=== PATIENT | female | born 1980 | race Caucasian/White ===

== ENCOUNTER 2017-04-18 13:17 | Emergency (ER) | payer MEDICARE, OTHER ==
[~2017-04-18] VITALS: Ht 170.2 cm; Wt 59.0 kg
--- OUTSIDE RECORDS SUMMARY | 2017-04-18 13:26 | XMS REPORT | Continuity of Care Document ---
Demographics Preferred Language Unknown Marital Status Unknown Jainism Affiliation Unknown Race Unknown Ethnic Group Unknown Author Author [facility] Address Unknown Phone Unavailable Allergies Medications Problems Date Dx Coded Attending Type Code Diagnosis Diagnosed By 08/21/2008 599.0 URINARY TRACT INFECTION 08/21/2008 785.0 TACHYCARDIA 08/21/2008 V25.9 Gynecologic Services Contraceptive Management 09/10/2008 V72.31 ROUTINE GYNECOLOGICAL EXAMINATION 03/03/2009 V25.49 SURVEILLANCE OF OTHER CONTRACEPTIVE METHOD 05/12/2009 296.32 MAJOR DEPRESSION RECURRENT MODERATE 05/12/2009 301.83 PD BORDERLINE 05/12/2009 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 05/27/2009 296.90 EPISODIC MOOD DISORDERS 06/02/2009 300.00 anxiety 06/11/2009 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 Visit Date/Time Discharge Status Pt. Type Provider Facility Loc./Unit Complaint [id number] 03/30/2011 14:25:00 03/30/2011 23: 59:59 CLS Outpatient
[2017-04-18] MEDS ORDERED: DEXT10TA9 PO (14:23)
[2017-04-18] MEDS ORDERED: MAGNESIUM PO (14:23)
[2017-04-18] MEDS ORDERED: TRAZ-28 PO (14:23)
[2017-04-18] MEDS ORDERED: RT-ALBUINH IH (14:23)
[2017-04-18] MEDS ORDERED: FLUO20CA42 PO (14:23)
[2017-04-18] MEDS ORDERED: MULTIVITAMIN GUMMIES PO (14:23)
--- NOTE | 2017-04-18 14:27 | ED GU-Female ---
General Chief Complaint: -Female Stated Complaint: HEAVY IRREGULAR VAG BLEEDING/NAUSEA Nursing Triage Note: C/O VAG BLEEDING FOR @ 3 WEEKS. SPOTTING ON 2 OR MORE PADS/DAY. STATES COLOR IS BRIGHT RED TO DARK. STATES MENSTRUAL CYCLE WAS END OF FEBRUARY. TOOK A TEST ET STATES IT WAS NEGATIVE. HAS HX OF MISCARRIAGE. Nursing Sepsis Screen: No Definite Risk Source: patient Exam Limitations: no limitations History of Present Illness Time seen by provider: 14:26 Allergies and Home Medications Allergies Coded Allergies: propranolol (Unverified Adverse Reaction, Unknown, 04/18/17) Pt. states it interacts with their allergy medication. Home Medications Albuterol Sulfate 1 Puff Puff, 2 PUFF IH Q4H, (Reported) 1 PUFF = 90 MCG Dextroamphetamine/Amphetamine 10 Mg Tablet, 10 MG PO BID, (Reported) Fluoxetine HCl 20 Mg Capsule, 20 MG PO DAILY, (Reported) Trazodone HCl 50 Mg Tablet, 25 MG PO HS, (Reported) [Magnesium] , 1 TAB PO DAILY, (Reported) [Multivitamin Gummies] , 2 TAB.CHEW PO DAILY, (Reported) Past Knxkixe-Bbhudh-Ubcgyg Hx Patient Social History Alcohol Use: Regular Use Alcohol Beverage of Choice: Beer, Wine Recreational Drug Use: Yes (MARIJUANA) Smoking Status: Current Everyday Smoker Type Used: Cigarettes Recent Foreign Travel: No Contact w/Someone Who Travel: No Recent Infectious Disease Expo: No Recent Hopitalizations: No Seasonal Allergies Seasonal Allergies: No Surgeries History of Surgeries: Yes (LASER SURGERY TO CERVIX) Respiratory History of Respiratory Disorde: Yes Respiratory Disorders: Asthma Cardiovascular History of Cardiac Disorders: Yes Cardiac Disorders: Irregular Heartbeat Neurological History of Neurological Disord: No Reproductive System : No (SEE TRIAGE NOTE) Last Menstrual Period: Mar 20, 2017 Genitourinary History of Genitourinary Disor: No Gastrointestinal History of Gastrointestinal Di: No Musculoskeletal History of Musculoskeletal Dis: No Endocrine History of Endocrine Disorders: No HEENT History of HEENT Disorders: No Cancer History of Cancer: No Psychosocial History of Psychiatric Problem: Yes Behavioral Health Disorders: ADD/ADHD, Anxiety, Bipolar, Depression Integumentary History of Skin or Integumenta: Yes Skin/Integumentary Disorders: Eczema Blood Transfusions History of Blood Disorders: No Adverse Reaction to a Blood Tr: No Physical Exam Vital Signs Vital Sign - Last 12Hours 04/18/17 14:01 Temp 97.4 Pulse 82 Resp 18 B/P (MAP) 143/98 Pulse Ox 100 O2 Delivery Nasal Cannula Capillary Refill : Less Than 3 Seconds Progress/Results/Core Measures Results/Orders Lab Results Laboratory Tests Test 04/18/17 15:05 04/18/17 15:06 04/18/17 15:08 04/18/17 16:55 Range/Units Sodium Level 138 135-145 MMOL/L Potassium Level 3.9 3.6-5.0 MMOL/L Chloride Level 103 98-107 MMOL/L Carbon Dioxide Level 28 21-32 MMOL/L Anion Gap 7 5-14 MMOL/L Blood Urea Nitrogen 11 7-18 MG/DL Creatinine 1.04 0.60-1.30 MG/DL Estimat Glomerular Filtration Rate 59 BUN/Creatinine Ratio 11 Glucose Level 97 70-105 MG/DL Calcium Level 9.6 8.5-10.1 MG/DL Total Bilirubin 0.4 0.1-1.0 MG/DL Aspartate Amino Transf (AST/SGOT) 22 5-34 U/L Alanine Aminotransferase (ALT/SGPT) 15 0-55 U/L Alkaline Phosphatase 61 40-136 U/L Total Protein 7.0 6.4-8.2 GM/DL Albumin 4.3 3.2-4.5 GM/DL Urine Color YELLOW Urine Clarity SLIGHTLY CLOUDY Urine pH 8 5-9 Urine Specific [place] 1.015 L 1.016-1.022 Urine Protein NEGATIVE NEGATIVE Urine Glucose (UA) NEGATIVE NEGATIVE Urine Ketones NEGATIVE NEGATIVE Urine Nitrite NEGATIVE NEGATIVE Urine Bilirubin NEGATIVE NEGATIVE Urine Urobilinogen NORMAL NORMAL MG/DL Urine Leukocyte Esterase 1+ H NEGATIVE Urine RBC (Auto) 5+ H NEGATIVE Urine RBC 0-2 /HPF Urine WBC 2-5 /HPF Urine Squamous Epithelial Cells >50 H /HPF Urine Renal Epithelial Cells NONE /HPF Urine Crystals NONE /LPF Urine Bacteria NEGATIVE /HPF Urine Casts NONE /LPF Urine Mucus NEGATIVE /LPF Urine Culture Indicated NO White Blood Count 7.7 4.3-11.0 10^3/uL Red Blood Count 4.30 L 4.35-5.85 10^6/uL Hemoglobin 13.7 11.5-16.0 G/DL Hematocrit 40 35-52 % Mean Corpuscular Volume 92 80-99 FL Mean Corpuscular Hemoglobin 32 25-34 PG Mean Corpuscular Hemoglobin Concent 35 32-36 G/DL Red Cell Distribution Width 12.6 10.0-14.5 % Platelet Count 230 130-400 10^3/uL Mean Platelet Volume 10.7 H 7.4-10.4 FL Neutrophils (%) (Auto) 65 42-75 % Lymphocytes (%) (Auto) 23 12-44 % Monocytes (%) (Auto) 9 0-12 % Eosinophils (%) (Auto) 2 0-10 % Basophils (%) (Auto) 0 0-10 % Neutrophils # (Auto) 5.0 1.8-7.8 X 10^3 Lymphocytes # (Auto) 1.8 1.0-4.0 X 10^3 Monocytes # (Auto) 0.7 0.0-1.0 X 10^3 Eosinophils # (Auto) 0.2 0.0-0.3 10^3/uL Basophils # (Auto) 0.0 0.0-0.1 10^3/uL Micro Results Microbiology 04/18/17 Genital Culture, Resulted Pending 04/18/17 Wet Prep - Final, Resulted My Orders Orders - MARCY FIGUEROA Cbc With Automated Diff (04/18/17 14:13) Urine Bedside (04/18/17 14:13) Comprehensive Metabolic Panel (04/18/17 15:05) Ua Culture If Indicated (04/18/17 15:05) Wet Prep (04/18/17 15:05) Neisseria Gonorrhea Dna (04/18/17 15:05) Chlamydia Dna (04/18/17 15:05) Genital Culture (04/18/17 15:05) Us Non Ob Pelvis Comp/Transvag (04/18/17 15:05) Vital Signs/I&O Vital Sign - Last 12Hours 04/18/17 14:01 Temp 97.4 Pulse 82 Resp 18 B/P (MAP) 143/98 Pulse Ox 100 O2 Delivery Nasal Cannula Blood Pressure Mean: 113 Departure Impression Impression: Primary Impression: BV (bacterial vaginosis) Additional Impression: Vaginal bleeding, abnormal Disposition: 01 HOME, SELF-CARE Condition: Improved Departure-Patient Inst. Decision time for Depature: 17:19 Referrals: TIAN EDWARDS DENNIS G MD NO,LOCAL PHYSICIAN (PCP) Primary Care Physician QUICK,WOODY W RADAR REPAIRER GIBSON,JOSE ARMANDO C DO Patient Instructions: Bacterial Vaginosis (DC), IRREGULAR VAGINAL BLEEDING Add. Discharge Instructions: All discharge instructions reviewed with patient and/or family. Voiced understanding. Medications as instructed. Tylenol Extra Strength as directed for pain. Ibuprofen 800 mg by mouth every 8 hours as needed for pain. Follow- up with the security attendant or family practitioner of your choice for recheck and formal Pap smear. Call for appointment time tomorrow morning. Return to the emergency department for worsened vaginal bleeding with greater than 2 pads per hour for greater than 2 hours, vaginal discharge, fever, inability urinate, or any other concerns. Scripts Metronidazole (Metronidazole) 500 Mg Tablet 500 MG PO BID, #14 TAB 0 Refills Prov: MARCY FIGUEROA 04/18/17 Work/School Note: Local Medical Staff Listing, Work Release Form Date Seen in the Emergency Department: Apr 18, 2017 Return to Work: Apr 19, 2017 Restrictions: No Restrictions MARCY FIGUEROA Apr 18, 2017 14:27
[2017-04-18 15:15] LABS: BASOPHILS % (AUTO) 0 % (0-10); EOSINOPHILS # (AUTO) 0.2 10^3/uL (0.0-0.3); EOSINOPHILS % (AUTO) 2 % (0-10); LYMPHOCYTES # (AUTO) 1.8 X 10^3 (1.0-4.0); LYMPHOCYTES % (AUTO) 23 % (12-44); MEAN CORPUSCULAR HEMOGLOBIN 32 PG (25-34); MEAN CORPUSCULAR HGB CONC 35 G/DL (32-36); MEAN CORPUSCULAR VOLUME 92 FL (80-99); MEAN PLATELET VOLUME 10.7 FL (7.4-10.4); MONOCYTES # (AUTO) 0.7 X 10^3 (0.0-1.0); MONOCYTES % (AUTO) 9 % (0-12); NEUTROPHILS % (AUTO) 65 % (42-75); PLATELET COUNT 230 10^3/uL (130-400); RED CELL DISTRIBUTION WIDTH 12.6 % (10.0-14.5); WHITE BLOOD COUNT 7.7 10^3/uL (4.3-11.0)
[2017-04-18 15:32] LABS: BILIRUBIN,URINE NEGATIVE (NEGATIVE); KETONES,URINE NEGATIVE (NEGATIVE); LEUKOCYTE ESTERASE ,URINE 1+ (NEGATIVE); NITRITE,URINE NEGATIVE (NEGATIVE); PH,URINE 8 (5-9); PROTEIN,URINE NEGATIVE (NEGATIVE); UROBILINOGEN,URINE NORMAL (NORMAL)
[2017-04-18 15:33] LABS: SQUAMOUS EPITHELIAL CELL,UR >50 /HPF
[2017-04-18 15:45] LABS: ALBUMIN 4.3 GM/DL (3.2-4.5); BILIRUBIN,TOTAL 0.4 MG/DL (0.1-1.0); CALCIUM 9.6 MG/DL (8.5-10.1); CREATININE SERUM 1.04 MG/DL (0.60-1.30); POTASSIUM 3.9 MMOL/L (3.6-5.0)
--- NOTE | 2017-04-18 15:58 | Diagnostic Imaging Report ---
EXAMINATION: Transabdominal and transvaginal pelvic ultrasound. INDICATION: Vaginal bleeding. FINDINGS: The uterus is 8.2 x 5.8 x 4.4 cm. The endometrial stripe is 1.5 cm in thickness. There is no focal lesion seen in the uterus. The left ovary is 3.6 x 2.5 x 2.7 cm in size with a 2.6 cm dominant follicle seen. Arterial and venous waveforms in the left ovary are noted. The right ovary is not seen, probably obscured by bowel gas. IMPRESSION: The right ovary is not seen. The uterus and left ovary demonstrate no significant abnormality. Dictated by: Dictated on workstation # [id number]
[2017-04-18] MEDS ORDERED: METR500T21 PO (17:21)
[2017-04-18 17:27] VITALS: BP 140/94
== END 2017-04-18 17:30 | disposition home or self-care (01) ==
LOC: EDUNIT# 13:17 → ER 13:22
DX: N76.0 Acute vaginitis (principal); B96.89 Other specified bacterial agents as the cause of diseases classified elsewhere; N93.9 Abnormal uterine and vaginal bleeding, unspecified; J45.909 Unspecified asthma, uncomplicated; F90.9 Attention-deficit hyperactivity disorder, unspecified type; F41.9 Anxiety disorder, unspecified; F31.9 Bipolar disorder, unspecified; F12.10 Cannabis abuse, uncomplicated; F17.210 Nicotine dependence, cigarettes, uncomplicated
CPT/HCPCS: 36415; 76830; 76856; 80053; 81000; 84703; 85025; 87070; 87210; 87491; 87591; 99284